=== PATIENT | female | born 1965 | race Caucasian/White ===

== ENCOUNTER 2021-11-07 09:08 | Emergency (ER) | payer MEDICARE, OTHER ==
[~2021-11-07] VITALS: Ht 162.6 cm; Wt 62.7 kg
[2021-11-07] MEDS ORDERED: BUPR100T3 PO (09:23)
[2021-11-07] MEDS ORDERED: ATOR1TAB21 PO (09:25)
[2021-11-07] MEDS ORDERED: ENAL-36 PO (09:25)
[2021-11-07] MEDS ORDERED: AMLO1TAB25 PO (09:25)
[2021-11-07] MEDS ORDERED: CLOP75TA2 PO (09:25)
[2021-11-07] MEDS ORDERED: ECOT81TA5 PO (09:25)
[2021-11-07] MEDS ORDERED: dexameTHASONE 20MG/5ML VIAL (J1100 PER 1MG) IV ONE (10:05)
[2021-11-07] MEDS ORDERED: FAMOTIDINE INJ 20MG/2ML VIAL (S0028 PER 1) IVP ONE (10:05)
[2021-11-07] MEDS ORDERED: diphenhydrAMINE 50MG/ML VIAL (J1200) IV ONE (10:05)
[2021-11-07 10:26] LABS: HEMATOCRIT 34.8 % (36.0-47.0); HEMOGLOBIN 12.4 g/dl (12.0-15.5); MEAN CORPUSCULAR HEMOGLOBIN 33.4 pg (27.0-33.0); MEAN CORPUSCULAR HGB CONC 35.6 g/dl (32.0-36.5); MEAN CORPUSCULAR VOLUME 93.8 fl (80.0-96.0); PLATELET COUNT, AUTOMATED 335 10^3/uL (150-450); RED BLOOD COUNT 3.71 10^6/uL (4.00-5.40); WHITE BLOOD COUNT 6.2 10^3/uL (4.0-10.0)
[2021-11-07 10:31] LABS: BLOOD UREA NITROGEN 7 MG/DL (7-18); CALCIUM LEVEL 9.5 MG/DL (8.5-10.1); CARBON DIOXIDE LEVEL 26 MEQ/L (21-32); CHLORIDE LEVEL 99 MEQ/L (98-107); CREATININE FOR GFR 0.81 MG/DL (0.55-1.30); GLOMERULAR FILTRATION RATE > 60.0 (>51); GLUCOSE, FASTING 87 MG/DL (70-100); POTASSIUM SERUM 4.4 MEQ/L (3.5-5.1); SODIUM LEVEL 132 MEQ/L (136-145)
[2021-11-07 12:35] VITALS: BP 129/70
--- NOTE | 2021-11-07 19:28 | ECGEPIP ---
[facility] - ED Test Date: 2021-11-07 Pat Name: ISSA WADE Department: Room: - Gender: Female [employer] Helper: AGUILAR : 1965 Requested By: Bartolome Briseno Order Number: [id number] Reading MD: Tana Kulkarni Measurements Intervals Richardson Rate: 80 P: 70 GA: 160 QRS: -29 QRSD: 82 T: 47 QT: 372 QTc: 429 Interpretive Statements Normal sinus rhythm Low voltage QRS No prior Electronically Signed on 11-07-2021 19:28:21 EST by Tana Kulkarni
== END 2021-11-07 12:36 | disposition home or self-care (01) ==
LOC: EDBD 09:08 → M ED 09:08
DX: T78.3XXA Angioneurotic edema, initial encounter (principal); T46.4X5A Adverse effect of angiotensin-converting-enzyme inhibitors, initial encounter; I10 Essential (primary) hypertension; F17.200 Nicotine dependence, unspecified, uncomplicated; Z88.5 Allergy status to narcotic agent; Z79.82 Long term (current) use of aspirin; Z79.899 Other long term (current) drug therapy
CPT/HCPCS: 80048; 84484; 85027; 93005; 93041; 94760; 96374; 96375; 99285; J1100; J1200